=== PATIENT | female | born 1940 | race Hispanic/Latino ===

== ENCOUNTER 2016-02-29 10:55 | Outpatient (CLI) | payer MEDICARE ==
--- NOTE | 2016-02-29 12:56 | Mammography Report ---
BONE DEXA:02/29/16 10:55:00 CLINICAL: Postmenopausal. COMPARISON: 01/06/14 and 11/15/12 TECHNIQUE: Two site bone DEXA performed on an Hologic scanner. FINDINGS: The average BMD of the lumbar spine L1 and L2 is 0.737g/cm squared with a T-score of -2.2 and a Z-score of 0. The L3 and L4 vertebral bodies were excluded as outliers because of radiopaque artifacts. This compares to 0.736g/cm squared on the last exam and represents a +0.1% change from the previous study and a -0.5% change from baseline. The average BMD of the left hip is 0.812g/cm squared with a T-score of -1.1 and a Z-score of +0.7. This compares to 0.853g/cm squared on the last exam and represents a -4.8% change from the previous study and a -2.5% change from baseline.. IMPRESSION: 1. WHO classification: Osteopenia with increased fracture risk based on both spine and left hip measurements. 2. A modest decline in left hip BMD compared to prior exams and minimal change in spine BMD compared to prior exams. RECOMMENDATION: Clinical correlation and routine screening. DEFINITIONS: BMD = Bone Mineral Density T-score = BMD related to mean peak bone mass of young adult (mean expressed in Standard Deviation) Z-score = Age matched BMD expressed in SD World Health Organization (WHO) Diagnostic Criteria Normal T-score > -1 SD Osteopenia T-score between -1 and -2.4 SD Osteoporosis T-score -2.5 SD or below NOTE: BMD is not the only risk factor for fracture; also consider factors such as the patient's age, risk of falling, previous osteoporotic fracture, family history of osteoporotic fractures, current smoker, and low body weight. Z-scores are not calculated if >80 years of age.
--- NOTE | 2016-02-29 15:32 | Mammography Report ---
BILATERAL DIGITAL SCREENING MAMMOGRAM : 02/29/16 10:55:00 CLINICAL: Routine screening. COMPARISON:01/06/14 FINDINGS: The breasts are heterogeneously dense, which may obscure small masses.No mass, architectural distortion or suspicious calcifications. IMPRESSION: No mammographic evidence of malignancy. BI-RADS CATEGORY: 1 -- Negative RECOMMENDATION: Routine mammographic screening in one year. COMMENT: Patient follow-up letters are generated by our [email or web address] application.
== END 2016-02-29 10:56 | disposition home or self-care (01) ==
LOC: SPVWC 10:55
PROVIDERS: ATTEND Obstetrics & Gynecology Gynecology
DX: Z12.31 Encounter for screening mammogram for malignant neoplasm of breast (principal); M81.0 Age-related osteoporosis without current pathological fracture; M85.80 Other specified disorders of bone density and structure, unspecified site; Z78.0 Asymptomatic menopausal state
CPT/HCPCS: 77080; G0202; 77067